=== PATIENT | male | born 1960 ===

== ENCOUNTER 2018-08-16 07:10 | Outpatient (CLI) | payer OTHER ==
[~2018-08-16] VITALS: Ht 152.4 cm; Wt 90.7 kg
== END 2018-08-16 07:25 | disposition home or self-care (01) ==
LOC: OFIC 805 07:10
DX: H70.12 Chronic mastoiditis, left ear (principal); H71.12 Cholesteatoma of tympanum, left ear; H69.83 Other specified disorders of Eustachian tube, bilateral; H90.72 Mixed conductive and sensorineural hearing loss, unilateral, left ear, with unrestricted hearing on the contralateral side; H61.23 Impacted cerumen, bilateral

== ENCOUNTER 2018-09-13 08:24 | Outpatient (CLI) | payer OTHER ==
[~2018-09-13] VITALS: Ht 152.4 cm; Wt 90.7 kg
== END 2018-09-13 08:40 | disposition home or self-care (01) ==
LOC: OFIC 805 08:24
DX: H70.12 Chronic mastoiditis, left ear (principal); H71.12 Cholesteatoma of tympanum, left ear; H69.83 Other specified disorders of Eustachian tube, bilateral; H90.71 Mixed conductive and sensorineural hearing loss, unilateral, right ear, with unrestricted hearing on the contralateral side

== ENCOUNTER 2018-10-11 07:13 | Day surgery (SDC) | payer OTHER ==
[~2018-10-11 07:13] MED LIST: ASPIR 8181 MG; JANUMET XR 50-1 EAC1
== END 2018-10-11 14:10 | disposition home or self-care (01) ==
LOC: CIR.AMB 07:13
DX: H71.12 Cholesteatoma of tympanum, left ear (principal); H90.72 Mixed conductive and sensorineural hearing loss, unilateral, left ear, with unrestricted hearing on the contralateral side; H70.12 Chronic mastoiditis, left ear

== ENCOUNTER 2018-10-18 08:15 | Outpatient (CLI) | payer OTHER ==
[~2018-10-18] VITALS: Ht 152.4 cm; Wt 86.2 kg
== END 2018-10-18 09:22 | disposition home or self-care (01) ==
LOC: OFIC 805 08:15
DX: J31.0 Chronic rhinitis (principal); H70.12 Chronic mastoiditis, left ear; H69.83 Other specified disorders of Eustachian tube, bilateral; H90.72 Mixed conductive and sensorineural hearing loss, unilateral, left ear, with unrestricted hearing on the contralateral side

== ENCOUNTER 2018-11-22 07:25 | Outpatient (CLI) | payer OTHER ==
[~2018-11-22] VITALS: Ht 152.4 cm; Wt 90.7 kg
== END 2018-11-22 15:19 | disposition home or self-care (01) ==
LOC: OFIC 805 07:25
DX: J31.0 Chronic rhinitis (principal); H70.12 Chronic mastoiditis, left ear; H71.12 Cholesteatoma of tympanum, left ear; H69.83 Other specified disorders of Eustachian tube, bilateral; H90.72 Mixed conductive and sensorineural hearing loss, unilateral, left ear, with unrestricted hearing on the contralateral side

== ENCOUNTER 2019-01-10 10:32 | Outpatient (CLI) | payer OTHER ==
[~2019-01-10] VITALS: Ht 152.4 cm; Wt 90.7 kg
== END 2019-01-10 11:45 | disposition home or self-care (01) ==
LOC: OFIC 805 10:32
DX: H70.12 Chronic mastoiditis, left ear (principal); H69.82 Other specified disorders of Eustachian tube, left ear; H90.12 Conductive hearing loss, unilateral, left ear, with unrestricted hearing on the contralateral side